=== PATIENT | female | born 1960 | race Two or more races ===

== ENCOUNTER 2021-08-03 09:43 | Outpatient (CLI) | payer OTHER | END 2021-08-03 09:47 | disposition home or self-care (01) | LOC: RAD 09:43 | PROVIDERS: ATTEND Physical Medicine & Rehabilitation Pain Medicine | DX: M41.20 Other idiopathic scoliosis, site unspecified (principal) ==

== ENCOUNTER 2023-04-30 07:45 | Outpatient (CLI) | payer OTHER | END 2023-04-30 07:53 | disposition home or self-care (01) | LOC: RX STUDY 07:45 | PROVIDERS: ATTEND Urology | DX: N81.10 Cystocele, unspecified (principal); N39.41 Urge incontinence | CPT/HCPCS: 74455; A9698 ==